=== PATIENT | female | born 1960 | race African-American/Black ===

== ENCOUNTER → 2016-10-11 | Outpatient (CLI) | payer OTHER ==
--- NOTE | 2016-10-11 17:50 | DX ---
PA and Lateral Chest History: Chest pain. Comparison to the previous examination May 05, 2016. Findings: The heart and mediastinum are normal. Pulmonary vascularity is normal. The lungs are clear. There is minimal blunting of left costophrenic angle which is unchanged. Pleural surfaces and bony t horax are negative for acute abnormality with minimal scoliosis and spinal degenerative changes noted .. A pneumothorax is not identified. Impression: Stable chest negative for acute cardiopulmonary abnormality.
== END ==
LOC: CIMAGING 12:23
PROVIDERS: ATTEND Family Medicine
DX: R07.9 Chest pain, unspecified (principal)
CPT/HCPCS: 71020-PO

== ENCOUNTER 2016-10-19 14:35 | Emergency (ER) | payer OTHER ==
[2016-10-19 15:07] VITALS: TEMP 97.6
--- NOTE | 2016-10-19 15:50 | UCPHY ---
H & P Patient Type: Established Smoking Status: Never smoked Time Seen by Provider: 10/19/16 15:30 HPI/ROS: HPI: 56-year-old female presents to urgent care with chief concern left forehead laceration, head injury, left shoulder pain. Symptoms onset at 1:45 p.m. when she had a mechanical fall, slipping on the ice, falling, landing on her left forehead and left shoulder. Reports 6/10 headache. Denies dizziness, visual changes, neck pain, shortness of breath, chest pain, nausea or vomiting. Reports left shoulder pain but denies left arm, left elbow, left wrist or hand pain. No numbness or tingling of her extremities. She does not take blood thinners including aspirin. She has no previous head injury. No allergies. Last tetanus in 2016. ROS:10 point review of systems is negative other than as stated in HPI (Darling Dove) Social History: (Darling Dove) Physical Exam: VS: Reviewed by me, see NN. General: Well developed, well nourished, in no acute distress. Head: Normalocephalic. Atraumatic. Face: Left forehead laceration that is stellate, 2.5 inch x 1 cm, see skin EENT: PERRLA. EOMI. No nystagmus. TMs intact bilaterally with normal landmarks. No rhinnorhea, nasal passages clear. Oropharynx without trauma or malocclusion. Neck: Supple, nontender. No midline tenderness. No tenderness with range of motion. Chest: Nontender, no subcutaneous air palpable. Respiratory: Breathing unlabored. Breath sounds equal bilaterally and clear to auscultation. No adventitious sounds. CV: Chest nontender, atraumatic. Heart rate regular. No murmur, distal pulses 2+ bilaterally. Brisk cap refill all extremities. GI: Abdomen soft, nontender. Nondistended. Bowel sounds normoactive and positive x4 quadrants. : No CVA tenderness. Neuro: Alert. Oriented x 3. Speech clear. Nonfocal cranial nerves throughout. Sensation intact all extremities. Normal motor. Strength equal in 5 + all extremities. Rapid alternating hand movements intact. Finger-nose intact. Memory and recall of 3/3 objects at 5 minutes intact. Negative Romberg. Skin: Skin warm, 2.5 inch stellate laceration located vertically above the left lateral eyebrow. Extremities: Atraumatic. Normal range of motion. (Darling Dove) Constitutional: Initial Vital Signs Temperature (C) 36.4 C 10/19/16 15:04 Heart Rate 61 10/19/16 15:04 Respiratory Rate 14 10/19/16 15:04 Blood Pressure 154/94 H 10/19/16 15:04 O2 Sat (%) 98 10/19/16 15:04 O2 Delivery Mode Room Air Allergies/Adverse Reactions: No Known Allergies Allergy (Verified 10/19/16 15:07) Home Medications: Medication Instructions Recorded NK [No Known Home Meds] 12/20/13 Medical Decision Making - Diagnostics Imaging: Left Shoulder , 3 Views History: Pain post trauma. Pain post fall. Findings: The humeral head is well rounded and normally located. No shoulder joint fracture or dislocation is identified. The AC joint is normally aligned. No clavicular fracture is identified. The coracoclavicular distance is not widened. No rib fracture is identified. Impression: Nothing acute identified. Dictated By: Oscar Bruno MD Noncontrast Head CT 1551 hours History: Slip and fall on ice with laceration over left forehead. Indication: Head injury, trauma Impression: 1. No acute intracranial abnormality seen. 2. Soft tissue swelling over the left inferior frontal bone with laceration. 3. Prosthesis over the calcified contracted left orbit. These findings were discussed by telephone with Darling Dove NP at 1610 hours. Dictated By: Rickey Still MD (Darling Dove) Procedures: After verbal consent was obtained and risks and benefits explained, the left forehead laceration was anesthetized using a total of 4 mL of 0.5% Marcaine with epinephrine. Lac then irrigated per protocol by computer technology trainer. Under sterile procedure, the wound was explored to its base with a gloved finger and no foreign body was identified. No deep structure identified. Wound was then draped and sterile procedure followed during laceration repair. Wound was repaired using # 12, 6-0 Prolene running sutures. After repair, laceration cleansed, bacitracin applied. Procedure performed by myself. Procedure was simple. Pt tolerated the procedure well. (Darling Dove) ED Course/Re-evaluation: 56-year-old female presents to urgent care with chief concern left forehead laceration, head injury, left shoulder pain. CT ordered to rule out intracranial bleed or fracture of the skull. Left shoulder x-ray ordered. ( Darling Dove) Differential Diagnosis: Differential diagnosis includes but is not limited to in no particular order laceration, contusion, skull fracture, intracranial bleed, concussion, head injury (Darling Dove) Other Provider: The patient was evaluated and managed by the nurse practitioner, Darling Dove. My co-signature indicates that I have reviewed this chart and I agree with the findings and plan of care as documented. I am the secondary supervising physician. (Candy Tomlinson) Departure - Departure Disposition: Home, Routine, Self-Care Clinical Impression: Forehead laceration, Head injury, Shoulder injury, Shoulder contusion Condition: Good Instructions: Laceration (ED), Care For Your Stitches (ED), Head Injury (ED), Contusion in Adults (ED) Additional Instructions: Plan: 1000 mg Tylenol every 8 hours as needed 400 mg ibuprofen every 6-8 hours as needed with food We saw you here today at the urgent care with a laceration of your forehead. We 'll have you begin cleaning the area daily by letting warm, soapy water run over it, but do not scrub or rub the site. Remove dried blood with a Q-tip dipped in water. Apply a thin layer of antibiotic ointment. Continue this routine daily. Recheck urgently if the area develops redness, swelling, increased pain, or red streaking above the wound, or if you develop a fever. Return to the emergency department in 5-7 days for suture removal. Return prior to then if any issues or concerns. Follow up with primary care tomorrow or Sunday for recheck without fail--When you call to schedule appointment, please let the office know you are an "ER follow up" appointment" Return here or go to ER immediately for any of the follow Inability to awaken the patient, severe or worsening headaches, somnolence or confusion, restlessness, unsteadiness, or seizures, difficulty with vision, vomiting, fever, or stiff neck, bowel or bladder incontinence, weakness or numbness involving any part of the body. Referrals: Beulah Kilpatrick MD [Primary Care Provider] - As per Instructions Stand Alone Forms: Work Excuse - PQRS PQRS Measurement: Not applicable (Darling Dove)
--- NOTE | 2016-10-19 16:15 | CT ---
Noncontrast Head CT 1551 hours History: Slip and fall on ice with laceration over left forehead. Technique: Standard noncontrast head CT protocol utilizing axial images was acquired through the amaya varium. Images were reconstructed in multiple planes as well. Dose reduction techniques were utilized . Findings: The cerebral parenchyma has a normal attenuation throughout. There are no masses, intracran ial hemorrhage, subdural collections, or evidence of recent cerebral infarction. Soft tissue swellin g is noted over the left inferior frontal bone with cutaneous laceration evident. The bones are unrem arkable. The paranasal sinuses are clear. There is dense calcification associated with the left orbit . A prosthesis is seen along the superficial aspect of the left orbital globe. The right orbit is nor mal in appearance. Impression: 1. No acute intracranial abnormality seen. 2. Soft tissue swelling over the left inferior frontal bone with laceration. 3. Prosthesis over the calcified contracted left orbit. These findings were discussed by telephone with Darling Dove NP at 1610 hours.
--- NOTE | 2016-10-19 16:26 | DX ---
Left Shoulder , 3 Views History: Pain post trauma. Pain post fall. Findings: The humeral head is well rounded and normally located. No shoulder joint fracture or disloc ation is identified. The AC joint is normally aligned. No clavicular fracture is identified. The opal coclavicular distance is not widened. No rib fracture is identified. Impression: Nothing acute identified.
[2016-10-19 22:26] VITALS: BP 150/88; PULSE 58; RESP 18; O2SAT 97
== END 2016-10-19 17:32 | disposition home or self-care (01) ==
LOC: CED 14:35
PROC: 0HQ1XZZ Repair Face Skin, External Approach (ICD-10-PCS; principal; 2016-10-19)
DX: S01.81XA Laceration without foreign body of other part of head, initial encounter (principal); M25.512 Pain in left shoulder; W00.0XXA Fall on same level due to ice and snow, initial encounter
CPT/HCPCS: 70450-PO; 73030-PO; G0463-PO

== ENCOUNTER 2017-01-11 11:11 | Day surgery (SDC) | payer OTHER ==
--- NOTE | 2017-01-10 22:35 | GHP ---
[f rep st] PREOP HISTORY AND PHYSICAL DATE OF ADMISSION: 01/11/2017 The patient is slated for surgery on 01/12/2016 on the Gynecology service. HISTORY: Upon admission, the patient is a 56-year-old, G3, P3, with postmenopausal bleeding, who clayton d a thickened endometrium on ultrasound in November 2016. The patient completed her menses in the fall of 2014. She began having bleeding in October of this year. She had laboratory evaluation that s howed a low estrogen, and an elevated FSH. The patient also had labs at her primary care that were normal. The patient had an ultrasound showing the uterus 8.7 x 5.0 x 5.6 cm, with a thickened endom etrium of 1.5 cm. There is a very hypervascular appearance within the lining. The left ovary had a slightly complex cyst at 1.5 cm, and the right ovary was normal. The uterus reveals 3 small fibroi ds, the largest at 2 cm. The patient underwent an endometrial biopsy in mid November that showed fragm ents of probable endometrial polyps, and negative for hyperplasia or malignancy. As this did not fu lly explain the thickened lining, then I recommended the patient proceed with hysteroscopy, and D an d C versus polypectomy. The patient was counseled as to the risks and benefits, and the consent for m signed. The patient declined signing the blood transfusion consent. The patient has not had furt her spotting since november. PAST MEDICAL HISTORY: The patient had some dysfunctional uterine bleeding in April 2014, at which time she also had an endometrial biopsy that was negative. PAST SURGICAL HISTORY: Negative. PAST OBSTETRIC HISTORY: Three term vaginal deliveries. 1991, a viable female. 1993, a viable male . 1994, a viable male. ALLERGIES: Patient has no known drug allergies. CURRENT MEDICATIONS: Occasional ibuprofen. The patient denies any herbal treatments. The patient is a nonsmoker. No alcohol or drug use. PHYSICAL EXAM: GENERAL APPEARANCE: The patient is a well-developed, well-nourished, black female w ith no apparent physical distress. VITAL SIGNS: Patient is clinically afebrile. Blood pressure 11 0/62. Weight 142 pounds. LUNGS: Clear to auscultation bilaterally. CARDIOVASCULAR: Regular rate and rhythm. ABDOMEN: Soft and nontender. PELVIC: Exam reveals a normal small uterus. No adnexa l masses. EXTREMITIES: Nontender, and no edema. ASSESSMENT: Postmenopausal bleeding, with thickened endometrium. PLAN: The patient will proceed with a hysteroscopy, with a dilation and curettage or polypectomy on January 11, 2017. /[id number]/MODL
[~2017-01-11 11:11] MED LIST: SILVER NITRATE APPLICATOR 1 APPL TP ONE
[2017-01-11] MEDS ORDERED: LR 1,000 ML IV ONE (12:02)
[2017-01-11] MEDS ORDERED: fentaNYL 100 MCG/2 ML INJ ONE (12:03)
[2017-01-11] MEDS ORDERED: MIDAZOLAM 2 MG/2 ML VIAL ONE (12:25)
[2017-01-11] MEDS ORDERED: CLINDAMYCIN 600 MG/DEXTROSE 50 ML IV ONE (12:30)
[2017-01-11] MEDS ORDERED: LIDOCAINE 1% 30 ML SDV ONE (12:40)
[2017-01-11] MEDS ORDERED: PROPOFOL 200 MG/20 ML VIAL ONE (12:48)
[2017-01-11] MEDS ORDERED: ACETAMINOPHEN 500 MG TAB ONE (13:51)
--- NOTE | 2017-01-17 04:47 | GOP ---
[f rep st] OPERATIVE REPORT DATE OF OPERATION: 01/11/2017 SURGEON: Regina Max MD NEUROSURGEON: Regina Max MD. ANESTHESIA: IV general MAC anesthesia. ANESTHESIOLOGIST: Amador Patterson MD. PREOPERATIVE DIAGNOSIS: Postmenopausal bleeding, thickened endometrium. POSTOPERATIVE DIAGNOSIS: Postmenopausal bleeding, thickened endometrium with polyp. PROCEDURE PERFORMED: Procedure performed was a hysteroscopy and a polypectomy. FINDINGS: SPECIMENS: The specimen sent to Pathology was an intrauterine polyp. ESTIMATED BLOOD LOSS: 25 mL. INDICATIONS: Patient is a 56-year-old, G3, P3, with postmenopausal bleeding and a thickened endomet rium noted on ultrasound in November 2016. Patient stopped her cycles in the fall of 2014. She began having bleeding in October of this year. She was found to have a low estradiol level and an ultras ound with a thickness of 1.5 cm. This appeared very hypervascular. An endometrial biopsy was perfo rmed which revealed fragments of a polyp with no hyperplasia. The patient was advised to have a mor e definitive evaluation and treatment with a hysteroscopy. She was counseled as to the risks and be nefits, and the consent form was signed for hysteroscopy. DESCRIPTION OF PROCEDURE: The patient was taken to the operating room where, following satisfactory IV MAC anesthesia, the patient was placed in dorsal lithotomy position. The patient had urinated p rior to coming to the operating room and had SCDs on her lower extremities. The patient was given a dose of antibiotics before the anesthesia. After positioning, the patient was prepped and draped i n usual sterile manner for vaginal procedure. Sterile speculum was placed within the vagina. An at raumatic tenaculum was placed on the anterior lip of the cervix and gentle traction applied. Cervix was easily dilated to a 6 Hegar dilator. Uterus was sounded to 7 cm. The true clear scope was use d and good visualization was obtained. A long uterine polyp was noted with the attachment site up i n the fundal area. Both tubal ostia were visualized and normal. The polyp was removed under direct visualization with the morcellator instrument. There was a thin atrophic lining throughout. After the polyp was removed. The cavity appeared normal. There was minimal bleeding. The patient adams ated the procedure well. The fluid deficit for the hysteroscopy was 220 mL. The tenaculum was porsche migue from the anterior lip and there was no bleeding. The hysteroscopy was completed and the patient was cleaned off and taken out of position. The patient was awoken and taken to the recovery room i n stable condition. SERVICE: Gynecology. /[id number]/MODL
== END 2017-01-11 15:30 | disposition home or self-care (01) ==
LOC: FSGY 11:11
PROVIDERS: ATTEND Obstetrics & Gynecology
PROC: 0UB98ZX Excision of Uterus, Via Natural or Artificial Opening Endoscopic, Diagnostic (ICD-10-PCS; principal; 2017-01-11 12:00)
DX: N84.0 Polyp of corpus uteri (principal); N95.0 Postmenopausal bleeding; R93.8 Abnormal findings on diagnostic imaging of other specified body structures
CPT/HCPCS: 58558; C1782; J2250; J2704; J3010

== ENCOUNTER → 2018-06-05 | Outpatient (CLI) | payer OTHER | LOC: FIMAGING 13:37 | PROVIDERS: ATTEND Family Medicine | DX: N64.4 Mastodynia (principal) ==